=== PATIENT | female | born 1970 | race Caucasian/White ===

== ENCOUNTER → 2017-03-06 | Outpatient (CLI) | payer MEDICAID ==
[~2017-03-06] MED LIST: ALBUTEROL2 PUFFS/17 IN; AMITRIPTYLINE50 MG PO; AMOXICILLIN 50500 MG PO; AMOXICILLIN500 M2 PO; AMOXIL500 M1 PO; CHEWABLE ASPIRI81 MG PO; CIPRO 500MG TA500 MG PO; CLARITIN REDITA10 MG PO; DICLOFENAC 50MG50 MG PO; DICLOFENAC SODI75 M3 PO; ETODOLAC400 MG PO; FLECAINIDE ACET50 MG PO; FLEXERIL10 MG PO; GABAPENTIN100 M1 PO; HYDROCODONE BI473 ML PO; HYDROCODONE BIT1 T39 PO; HYDROCODONE BIT1 T45 PO; HYDROCODONE1 TABLET PO; HYDROXYZINE HCL25 MG PO; KEFLEX 500MG.500 MG PO; LEADER NATURAL1 SGL PO; LOPRESSOR HCT1 TAB PO; LORATADINE 10MG10 M1 PO; LORTAB 5/500 501 TAB PO; MEDROL 4MG. DOSE4 MG PO; MELATONIN3 MG PO; METHOCARBAMOL750 M1 PO; METOPROLOL TART50 MG PO; METOPROLOL25 MG PO; METOPROLOL50 MG OR; METOPROLOL50 MG PO; NORCO 325 MG-51 TAB PO; ONE DAILY WOMEN1 TAB PO; OXCARBAZEPINE600 M1 PO; Oxycodone5 MG PO; PANTOPRAZOLE SO40 MG PO; PERCOCET 5/3251 EACH PO; PHENERGAN 25MG.25 M1 PO; PHENERGAN 25MG.25 MG PR; PHENTERMINE37.5 MG PO; PREDNISONE 10MG10 MG PO; PRILOSEC OTC20 MG PO; SYMBICORT1 AER IH; TAMIFLU75 MG PO; TESSALON PERLE100 M1 PO; TESSALON PERLE200 MG PO; TRAMADOL 50MG T50 M1 PO; ULTRAM 50 MG TA50 MG PO; ULTRAM50 MG PO; VICODIN 5/500 T1 TAB PO; ZANAFLEX2 M1 PO
[2017-03-06 16:53] LABS: AMPHETAMINES/METAMPHETAMINES NEGATIVE ng/mL (<1000)
== END ==
LOC: LAB 15:13
PROVIDERS: Nurse Anesthetist, Certified Registered
DX: Z79.899 Other long term (current) drug therapy (principal)

== ENCOUNTER → 2017-08-12 | Emergency (ER) | payer MEDICAID ==
[~2017-08-12] VITALS: Ht 167.6 cm; Wt 126.1 kg
[~2017-08-12] MED LIST changes: +BACTRIM DS 8001 TAB PO; +DICLOFENAC SODI75 M2 PO; +MINOCYCLINE 10100 MG PO; +OMEPRAZOLE20 MG PO; +VITAMIN D50000 I1 PO; +ZITHROMAX Z PA250 MG PO; +[UNRECOGNIZED DRUG - OTHER] PO
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
[2017-08-12 21:00] VITALS: BP 106/75
--- OUTSIDE RECORDS SUMMARY | 2017-08-17 22:42 | External Medical Summary Rpt | CCD ---
Demographics Preferred Language Ethiopian Marital Status Unknown Church Affiliation Unknown Race Unknown Ethnic Group Unknown Author Author , RAE MCBRIDE Address Unknown Phone Immunization Unable to retrieve immunization data due to connection failure with Immunization Registry. Please try again later.
--- OUTSIDE RECORDS SUMMARY | 2017-08-17 22:42 | External Medical Summary Rpt | CCD ---
Demographics Preferred Language [place] Island[place] Marital Status Unknown Lutheran Affiliation Unknown Race Unknown Ethnic Group Unknown Author Author , RAE MCBRIDE Address Unknown Phone Immunization Unable to retrieve immunization data due to connection failure with Immunization Registry. Please try again later.
--- OUTSIDE RECORDS SUMMARY | 2017-08-17 22:43 | External Medical Summary Rpt ---
Author Author WILTONSAL Ontiveros, [employer] Address Unknown Phone Unavailable Results Opiates and Oxycodone(GC/MS),U Observa Value Referen Units Interpr Notes Date tion ce etation Range Hydroco 2510 Cutoff= ng/mL No No Oct 2 done 100 informa informa 2017 GC/MS, tion in tion in 10:07 Urine source source AM data data Oxycodo Negativ Cutoff= No No Test Oct 2 ne/Oxym e 100 informa informa include 2017 orph tion in tion in s 10:07 source source Oxycodo AM data data ne and Oxymorp honePer formed at: [facility] [id number] [place], [place] [id number] Directo r: Miguel Ángel Fontenot MD, Phone: [phone] Codeine Negativ Cutoff= No No No Oct 2 e 100 informa informa informa 2017 tion in tion in tion in 10:07 source source source AM data data data Morphin Negativ Cutoff= No No No Oct 2 e e 100 informa informa informa 2017 tion in tion in tion in 10:07 source source source AM data data data Hydromo Positiv . No Abnorma No Oct 2 rphone e informa l informa 2017 tion in tion in 10:07 source source AM data data Hydromo 331 Cutoff= ng/mL No No Oct 2 rphone 100 informa informa 2017 GC/MS, tion in tion in 10:07 Urine source source AM data data Hydroco Positiv . No Abnorma No Oct 2 done e informa l informa 2017 tion in tion in 10:07 source source AM data data Opiates Positiv . No Abnorma Opiate Oct 2 e informa l test 2017 tion in include 10:07 source s AM data Codeine , Morphin e, Hydromo rphone, Hydroco done. Drugs identified in Urine by Screen method Observa Value Referen Units Interpr Notes Date tion ce etation Range Positive urine drug screen samples are stored for 7 days. Contact the Lab if confirmation of positives is needed. Ampheta NEGATIV <1000 ng/mL No No Oct 2 mine E informa informa 2017 [Presen tion in tion in 10:07 ce] in source source AM Urine data data by Screen method Barbitura <200 ng/mL No No Oct 2 tenzin informati informati 2017 [Mass/vol on in on in 10:07 AM ume] in source source Urine by data data Screen method Benzodiaz 200 ng/mL ng/mL No No Oct 2 epines informati informati 2017 [Mass/vol on in on in 10:07 AM ume] in source source Serum or data data Plasma by Screen method Cocaine <300 ng/g No No Oct 2 [Mass/vol informati informati 2016 ume] in on in on in 10:07 AM Unspecifi source source ed data data specimen Methadone <300 ng/mL No No Oct 2 informati informati 2016 [Mass/vol on in on in 10:07 AM ume] in source source Unspecifi data data ed specimen Opiates <300 ng/mL High This is Oct 2 [Mass/vol an 2017 ume] in UNCONFIRM 10:07 AM Unspecifi ED ed result. specimen This result is for medicalpu rposes and/or treatment only. Phencycli <25 ng/mL No No Oct 2 dine informati informati 2016 [Mass/vol on in on in 10:07 AM ume] in source source Unspecifi data data ed specimen 11-Hydr NEGATIV <50 ng/mL No No Oct 2 oxy E informa informa 2017 delta-9 tion in tion in 10:07 source source AM tetrahy data data drocann abinol [Presen ce] in Unspeci fied specime n RETIC CT AUTOMATED Observa Value Referen Units Interpr Notes Date tion ce etation Range Reticul 2.5 0.5 - % High No Dec 03 ocytes/ 1.5 informa 2014 100 tion in 7:50 AM erythro source cytes data in Blood by Automat ed count CBC W DIFF AUTOMATED Observa Value Referen Units Interpr Notes Date tion ce etation Range Leukocy 17.9 4.5 - K/uL High No Dec 03 tenzin 11.5 informa 2014 [#/volu tion in 6:47 AM me] in source Blood data by Automat ed count Erythro 3.64 4.00 - M/uL Low No Dec 03 cytes 5.40 informa 2014 [#/volu tion in 6:47 AM me] in source Blood data by Automat ed count Hemoglo 10.9 12.0 - g/dL Low No Dec 03 bin 15.0 informa 2014 [Mass/v tion in 6:47 AM olume] source in data Blood Hematoc 32 35 - 49 % Low No Dec 03 rit informa 2014 [Volume tion in 6:47 AM source Fractio data n] of Blood by Automat ed count Erythro 88.7 80.0 - fL No No Dec 03 cyte 100 informa informa 2015 mean tion in tion in 6:47 AM corpusc source source ular data data volume [Entiti c volume] by Automat ed count Erythro 29.9 26.0 - pg No No Dec 03 cyte 32.0 informa informa 2014 mean tion in tion in 6:47 AM corpusc source source ular data data hemoglo bin [Entiti c mass] by Automat ed count Erythro 33.7 32.0 - g/dL No No Dec 03 cyte 36.0 informa informa 2014 mean tion in tion in 6:47 AM corpusc source source ular data data hemoglo bin concent ration [Mass/v olume] by Automat ed count Erythro 14.1 11.5 - % No No Dec 03 cyte 14.5 informa informa 2014 distrib tion in tion in 6:47 AM ution source source width data data [Ratio] by Automat ed count Platele 253 150 - K/uL No No Dec 03 ts 450 informa informa 2014 [#/volu tion in tion in 6:47 AM me] in source source Blood data data by Automat ed count Manual SEE No No No No Dec 03 Diff BELOW informa informa informa informa 2014 tion in tion in tion in tion in 6:47 AM source source source source data data data data SEGS 69 40 - 75 % No No Dec 03 informa informa 2014 tion in tion in 6:47 AM source source data data BANDS 6 0 - 5 % High No Dec 03 informa 2014 tion in 6:47 AM source data LYMPHS 8 16 - 46 % Low No Dec 03 inform2014 tion in 6:47 AM source data ATY 10 0 - 0 % High No Dec 03 LYMPHS informa 2014 tion in 6:47 AM source data MONOS 2 0 - 12 % No No Dec 03 informa informa 2015 tion in tion in 6:47 AM source source data data Eosinop 5 0 - 7 % No No Dec 03 hils/10 informa informa 2015 0 tion in tion in 6:47 AM leukocy source source tenzin in data data Blood by Automat ed count Basophi 0 0 - 2 % No No Dec 03 ls/100 informa informa 2015 leukocy tion in tion in 6:47 AM tenzin in source source Blood data data by Automat ed count Platele ADEQUAT No No No No Dec 03 t Est E informa informa informa informa 2015 tion in tion in tion in tion in 6:47 AM source source source source data data data data RBC NORMAL No No No No Dec 03 Morph informa informa informa informa 2015 tion in tion in tion in tion in 6:47 AM source source source source data data data data MAGNESIUM Observa Value Referen Units Interpr Notes Date tion ce etation Range Magnesi 1.5 1.8 - mg/dL Low No Dec 02 um 2.4 informa 2014 [Mass/v tion in 11:49 olume] source AM in data Serum or Plasma BASIC METABOLIC PANEL BMP Observa Value Referen Units Interpr Notes Date tion ce etation Range Sodium 134 136 - mmol/L Low No Dec 02 [Moles/ 145 informa 2014 volume] tion in 6:29 AM in source Serum data or Plasma Potassi 3.1 3.5 - mmol/L Low No Dec 02 um 5.1 informa 2014 [Moles/ tion in 6:29 AM volume] source in data Serum or Plasma Chlorid 98 98 - mmol/L No No Dec 02 e 107 informa informa 2014 [Moles/ tion in tion in 6:29 AM volume] source source in data data Serum or Plasma TOTAL 29 21 - 32 mmol/L No No Dec 02 CO2 informa informa 2014 tion in tion in 6:29 AM source source data data Anion 10 5 - 15 mmol/L No No Dec 02 gap in informa informa 2014 Serum tion in tion in 6:29 AM or source source Plasma data data Glucose 153 70 - mg/dl High No Dec 02 120 informa 2014 [Mass/v tion in 6:29 AM olume] source in data Serum or Plasma Urea 11 7 - 18 mg/dl No No Dec 02 nitroge informa informa 2014 n tion in tion in 6:29 AM [Mass/v source source olume] data data in Serum or Plasma Creatin 0.7 0.6 - mg/dl No No Dec 02 ine 1.3 informa informa 2014 [Mass/v tion in tion in 6:29 AM olume] source source in data data Serum or Plasma AGE 44 No yrs No No Dec 02 informa informa informa 2014 tion in tion in tion in 6:29 AM source source source data data data GFR >60 No ml/min No No Dec 02 informa informa informa 2014 tion in tion in tion in 6:29 AM source source source data data data Calcium 8.4 8.5 - mg/dl Low No Dec 02 10.1 informa 2014 [Mass/v tion in 6:29 AM olume] source in data Serum or Plasma BUN/CRE 16 6 - 25 ratio No No Dec 02 RATIO informa informa 2014 tion in tion in 6:29 AM source source data data OSMOLAL 271 272 - No Low No Dec 02 ITY 295 informa informa 2015 tion in tion in 6:29 AM source source data data \\BLDo\\G No No No No Dec 02 LOMERUL informa informa informa informa 2015 AR tion in tion in tion in tion in 6:29 AM FILTRAT source source source source ION data data data data RATE INTERPR ETATION \\BLDx\\ Normal No No No No Dec 02 Range: informa informa informa informa 2014 >60 tion in tion in tion in tion in 6:29 AM Ml/min/ source source source source 1.73 sq data data data data meters If No No No No Dec 02 patient informa informa informa informa 2014 is tion in tion in tion in tion in 6:29 AM source source source source data data data data Mariaelena n, multipl y GFR by 1.120. *GFR No No No No Dec 02 only informa informa informa informa 2014 applies tion in tion in tion in tion in 6:29 AM to source source source source adults data data data data over the age 18. CBC W DIFF AUTOMATED Observa Value Referen Units Interpr Notes Date tion ce etation Range Leukocy 14.1 4.5 - K/uL High No Dec 02 tenzin 11.5 informa 2014 [#/volu tion in 6:21 AM me] in source Blood data by Automat ed count Erythro 3.69 4.00 - M/uL Low No Dec 02 cytes 5.40 informa 2014 [#/volu tion in 6:21 AM me] in source Blood data by Automat ed count Hemoglo 10.9 12.0 - g/dL Low No Dec 02 bin 15.0 informa 2014 [Mass/v tion in 6:21 AM olume] source in data Blood Hematoc 33 35 - 49 % Low No Dec 02 rit informa 2014 [Volume tion in 6:21 AM source Fractio data n] of Blood by Automat ed count Erythro 89.4 80.0 - fL No No Dec 02 cyte 100 informa informa 2015 mean tion in tion in 6:21 AM corpusc source source ular data data volume [Entiti c volume] by Automat ed count Erythro 29.5 26.0 - pg No No Dec 02 cyte 32.0 informa informa 2015 mean tion in tion in 6:21 AM corpusc source source ular data data hemoglo bin [Entiti c mass] by Automat ed count Erythro 33.0 32.0 - g/dL No No Dec 02 cyte 36.0 informa informa 2014 mean tion in tion in 6:21 AM corpusc source source ular data data hemoglo bin concent ration [Mass/v olume] by Automat ed count Erythro 14.5 11.5 - % No No Dec 02 cyte 14.5 informa informa 2015 distrib tion in tion in 6:21 AM ution source source width data data [Ratio] by Automat ed count Platele 255 150 - K/uL No No Dec 02 ts 450 informa informa 2015 [#/volu tion in tion in 6:21 AM me] in source source Blood data data by Automat ed count Lymphoc 12.4 18.0 - % Low No Dec 02 ytes/10 42.0 informa 2015 0 tion in 6:21 AM leukocy source tenzin in data Blood by Automat ed count Monocyt 10.2 2.0 - % No No Dec 02 es/100 11.0 informa informa 2015 leukocy tion in tion in 6:21 AM tenzin in source source Blood data data by Automat ed count Neutrop 71.5 50.0 - % High No Dec 02 hils.ba 70.0 informa 2015 nd tion in 6:21 AM form/10 source 0 data leukocy tenzin in Blood by Manual count Eosinop 5.60 1.00 - % High No Dec 02 hils/10 3.00 informa 2015 0 tion in 6:21 AM leukocy source tenzin in data Blood by Automat ed count Basophi 0.30 0.00 - % No No Dec 02 ls/100 2.00 informa informa 2015 leukocy tion in tion in 6:21 AM tenzin in source source Blood data data by Automat ed count Lymphoc 1.75 0.60 - K/uL No No Dec 02 ytes/10 3.40 informa informa 2015 0 tion in tion in 6:21 AM leukocy source source tenzin in data data Blood by Automat ed count Monocyt 1.44 0.00 - K/uL High No Dec 02 es/100 0.90 informa 2015 leukocy tion in 6:21 AM tenzin in source Blood data by Automat ed count Neutrop 10.09 2.00 - K/uL High No Dec 02 hils.ba 6.90 informa 2015 nd tion in 6:21 AM form/10 source 0 data leukocy tenzin in Blood by Manual count Eosinop 0.79 0.00 - K/uL High No Dec 02 hils/10 0.70 informa 2015 0 tion in 6:21 AM leukocy source tenzin in data Blood by Automat ed count Basophi 0.04 0.00 - K/uL No No Dec 02 ls/100 0.20 informa informa 2015 leukocy tion in tion in 6:21 AM tenzin in source source Blood data data by Automat ed count Manual NOT No No No No Dec 02 Diff INDICAT informa informa informa informa 2014 ED tion in tion in tion in tion in 6:21 AM source source source source data data data data KNEE LEFT 2 VIEWS Observa Value Referen Units Interpr Notes Date tion ce etation Range KNEE No No No No Dec 01 LEFT 2 informa informa informa informa 2014 VIEWS tion in tion in tion in tion in 9:47 AM [place] [facility] source source source source COUNTY data data data data [facility]\\.br\\ [address]\\.br \\ [place] [address]\\. br\\\\.br \\ RADIOLO GY REPORT\\ .br\\ Name: BETSY TROY\\.br\\ Patient #: [id number] Stay Type: I/P\\.br \\ Age: 44 Room: 236\\.br \\ : 969 Sex: F\\.br\\ Orderin g Phys: BROOKS MATIAS MR#: [id number]\\. br\\ Family Phys: ANDERS MAHARAJ Pt Phone: \\. br\\ Admitti ng Phys: BROOKS MATIAS\\.br\\ Unsig trevin Transcr iptions represe nt a prelimi nary report and do\\.br\\ not reflect a medical or legal documen t.\\.b r\\\\.br\\ \\.br\\ %'& %#"# #$$#"!\\ .br\\ -\\.br\\& ! ! ")! )&)(\\.b r\\\\.br\\ HISTORY /INDICA TION: Post op total knee arthrop lasty.\\ .br\\\\.b r\\ Two views obtaine d showing the new arthrop lasty. Orthope dic element s are well positio trevin. No\\.br\\ gross complic ations. \\.br\\\\. br\\\\.br \\\\.br\\\\ .br\\ Electro nically reviewe d and signed by:\\.br \\ KIN ROBERTS MD\\.br\\ RADIOLO GIST/ 17:58\\. br\\\\.br \\ Dictati on Date/Ti me: 12/01/14 10:11 Dictate d By: KIN ROBERTS MD RADIOLO GIST\\.b r\\ Transcr . Date/Ti me: 12/01/15 / 12:04 Transcr . Init.: [facility]\\.br \\\\.br\\ Copy for: Kenny [facility] ([facility])\\.br \\ Copy for: BROOKS Mitchell M.D. via fax\\.br \\\\.br\\ VIT B12 FOLATE Observa Value Referen Units Interpr Notes Date tion ce etation Range _VIT No No No Dec 04 B12& informa informa informa informa 2014 FOLATE_ tion in tion in tion in tion in 9:53 AM source source source source data data data data Vitamin No No No Dec 04 B12 informa informa informa informa 2014 and tion in tion in tion in tion in 9:53 AM Folate source source source source data data data data Reporte No No No No Dec 04 d: informa informa informa informa 2014 tion in tion in tion in tion in 9:53 AM 015 source source source source 09:21 data data data data Status= F ------- No No No Dec 04 ------- informa informa informa informa 2014 ------- tion in tion in tion in tion in 9:53 AM ------- source source source source ------- data data data data ------- ------- ------- ------- ------- ------- --- TEST No No No Dec 04 informa informa informa informa 2014 tion in tion in tion in tion in 9:53 AM source source source source RESULT data data data data FLAG RANGE UNITS SC ------- No No No Dec 04 ------- informa informa informa informa 2014 ------- tion in tion in tion in tion in 9:53 AM ------- source source source source ------- data data data data ------- ------- ------- ------- ------- ------- --- Vitamin No No No No Dec 04 B12 informa informa informa informa 2015 tion in tion in tion in tion in 9:53 AM source source source source 498 data data data data 211-946 pg/mL CB 5.0922. rfl.COR RCTD .LCTR Folate No No No No Dec 04 (Folic informa informa informa informa 2015 Acid), tion in tion in tion in tion in 9:53 AM source source source source >19.9 data data data data >3.0 ng/mL CB 5.0922. rfl.COR RCTD .LCTR Serum No No No No Dec 04 informa informa informa informa 2014 tion in tion in tion in tion in 9:53 AM source source source source data data data data A serum No No No No Dec 04 folate informa informa informa informa 2014 tion in tion in tion in tion in 9:53 AM concent source source source source ration data data data data of less than 3.1 ng/mL is conside No No No No Dec 04 red to informa informa informa informa 2015 represe tion in tion in tion in tion in 9:53 AM nt source source source source clinica data data data data l deficie ncy. No No No No No Dec 04 informa informa informa informa informa 2015 tion in tion in tion in tion in tion in 9:53 AM source source source source source data data data data data Test No No No No Dec 04 perform informa informa informa informa 2014 ed at: tion in tion in tion in tion in 9:53 AM [facility] source source source source Babita data data data data 6370 No No No No Dec 04 Foss informa informa informa informa [address] tion in tion in tion in tion in 9:53 AM source source source source data data data data Babita, No No No No Dec 04 OH informa informa informa informa 2015 72224-1 tion in tion in tion in tion in 9:53 AM 296 source source source source data data data data 614 No No No No Dec 04 889-106 informa informa informa informa 2015 1 tion in tion in tion in tion in 9:53 AM source source source source data data data data Modina No No No No Dec 04 R. informa informa informa informa 2015 Thrashe tion in tion in tion in tion in 9:53 AM MD xenia source source source source data data data data No No No No Dec 04 5.0953. informa informa informa informa 2015 XMT.SEN tion in tion in tion in tion in 9:53 AM T REF source source source source data data data data No No No No Dec 04 5.0953. informa informa informa informa 2014 XMT.SEN tion in tion in tion in tion in 9:53 AM T REF source source source source data data data data No No No No Dec 04 5.0953. informa informa informa informa 2014 LMM.to tion in tion in tion in tion in 9:53 AM GUY source source source source JA via data data data data fax No No No No Dec 04 5.0953. informa informa informa informa 2014 LMM.to tion in tion in tion in tion in 9:53 AM MELITON source source source source GLE via data data data data link IRON IBC n Percent SATURATION Observa Value Referen Units Interpr Notes Date tion ce etation Range Iron 303 250 - ug/dL No No Dec 03 saturat 450 informa informa 2015 ion tion in tion in 8:05 AM [Mass] source source in data data Serum or Plasma Iron 94 50 - ug/dL No No Dec 03 [Mass/v 175 informa informa 2015 olume] tion in tion in 8:05 AM in source source Serum data data or Plasma % 31 12 - 57 No No No Dec 03 SATURAT informa informa informa 2015 ION tion in tion in tion in 8:05 AM source source source data data data FERRITIN Observa Value Referen Units Interpr Notes Date tion ce etation Range Ferriti 128 8 - 388 ng/mL No No Dec 03 n informa informa 2014 [Mass/v tion in tion in 8:05 AM olume] source source in data data Serum or Plasma BB TYPE AND SCREEN Observa Value Referen Units Interpr Notes Date tion ce etation Range TYPE No No No No Dec 01 AND informa informa informa informa 2014 SCREEN tion in tion in tion in tion in 7:34 AM source source source source data data data data { No No No No Dec 01 ABO informa informa informa informa 2014 tion in tion in tion in tion in 7:34 AM source source source source A data data data data (A, B, AB or O ) { No No No No Dec 01 RH informa informa informa informa 2014 tion in tion in tion in tion in 7:34 AM source source source source data data data data POSITIV E (POS OR NEG ) { No No No No Dec 01 informa informa informa informa 2014 Antibod tion in tion in tion in tion in 7:34 AM y source source source source Screen data data data data NEGATIV E (POS OR NEG ) URINALYSIS COMPLETE AUTOMATED Observa Value Referen Units Interpr Notes Date tion ce etation Range Color YELLOW NL: No No No Nov 19 of Negativ informa informa informa 2014 Urine e tion in tion in tion in 2:07 PM source source source data data data Appeara CLEAR NL: No No No Nov 19 nce of Negativ informa informa informa 2014 Urine e tion in tion in tion in 2:07 PM source source source data data data Glucose NEG NL: No No No Nov 19 Negativ informa informa informa 2014 [Mass/v e tion in tion in tion in 2:07 PM olume] source source source in data data data Urine by Test strip Bilirub NEG NL: No No No Nov 19 in Negativ informa informa informa 2014 [Presen e tion in tion in tion in 2:07 PM ce] in source source source Urine data data data by Test strip Ketones NEG NL: No No No Nov 19 Negativ informa informa informa 2014 [Presen e tion in tion in tion in 2:07 PM ce] in source source source Serum data data data or Plasma Specifi 1.020 NL: No No No Nov 19 c 1.00 >= informa informa informa 2015 gravity 1.030 tion in tion in tion in 2:07 PM of source source source Urine data data data Hemoglo NEG NL: No No No Nov 19 bin Negativ informa informa informa 2014 [Presen e tion in tion in tion in 2:07 PM ce] in source source source Urine data data data by Test strip pH of 6.0 NL: No No No Nov 19 Urine informa informa informa 2014 by Test tion in tion in tion in 2:07 PM strip source source source data data data Protein NEG NL: No No No Nov 19 Negativ informa informa informa 2014 [Presen e tion in tion in tion in 2:07 PM ce] in source source source Urine data data data by Test strip Urobili 0.2 NL: 0.2 No No No Nov 19 nogen - 1.0 informa informa informa 2014 [Mass/v tion in tion in tion in 2:07 PM olume] source source source in data data data Urine by Test strip Nitrite NEG NL: No No No Nov 19 Negativ informa informa informa 2014 [Presen e tion in tion in tion in 2:07 PM ce] in source source source Urine data data data by Test strip Leukocy NEG NL: No No No Nov 19 tenzin Negativ informa informa informa 2014 [#/volu e tion in tion in tion in 2:07 PM me] in source source source Blood data data data by Automat ed count { No No No No Nov 19 MICROSC informa informa informa informa 2014 OPIC tion in tion in tion in tion in 2:07 PM source source source source See data data data data Below Wbc NEGATIV NL: No No No Nov 19 E NEGATIV informa informa informa 2014 E tion in tion in tion in 2:07 PM source source source data data data Rbc NEGATIV NL: No No No Nov 19 E NEGATIV informa informa informa 2014 E tion in tion in tion in 2:07 PM source source source data data data Epi NEGATIV NL: No No No Nov 19 Cells E NEGATIV informa informa informa 2014 E tion in tion in tion in 2:07 PM source source source data data data Bacteri NEGATIV NL: No No No Nov 19 a E NEGATIV informa informa informa 2014 E tion in tion in tion in 2:07 PM source source source data data data Mucous NEGATIV NL: No No No Nov 19 E NEGATIV informa informa informa 2014 E tion in tion in tion in 2:07 PM source source source data data data Yeast NEGATIV NL: No No No Nov 19 E NEGATIV informa informa informa 2014 E tion in tion in tion in 2:07 PM source source source data data data Casts NEGATIV NL: No No No Nov 19 E NEGATIV informa informa informa 2014 E tion in tion in tion in 2:07 PM source source source data data data Crystal NEGATIV NL: No No No Nov 19 s E NEGATIV informa informa informa 2014 E tion in tion in tion in 2:07 PM source source source data data data METH OF C CATCH No No No No Nov 19 TERI informa informa informa informa 2014 tion in tion in tion in tion in 2:07 PM source source source source data data data data CULTURE NOT No No No No Nov 19 SETUP INDIC informa informa informa informa 2014 tion in tion in tion in tion in 2:07 PM source source source source data data data data CBC W DIFF AUTOMATED Observa Value Referen Units Interpr Notes Date tion ce etation Range Leukocy 13.5 4.5 - K/uL High No Jun 18 tenzin 11.5 informa 2013 [#/volu tion in 5:39 AM me] in source Blood data by Automat ed count Erythro 3.02 4.00 - M/uL Low No Jun 18 cytes 5.40 informa 2013 [#/volu tion in 5:39 AM me] in source Blood data by Automat ed count Hemoglo 9.1 12.0 - g/dL Low Jun 18 bin 15.0 informa 2013 [Mass/v tion in 5:39 AM olume] source in data Blood Hematoc 28 35 - 49 % Low No Jun 18 rit informa 2014 [Volume tion in 5:39 AM source Fractio data n] of Blood by Automat ed count Erythro 92.4 80.0 - fL No No Jun 18 cyte 100 informa informa 2014 mean tion in tion in 5:39 AM corpusc source source ular data data volume [Entiti c volume] by Automat ed count Erythro 30.1 26.0 - pg No No Jun 18 cyte 32.0 informa informa 2014 mean tion in tion in 5:39 AM corpusc source source ular data data hemoglo bin [Entiti c mass] by Automat ed count Erythro 32.6 32.0 - g/dL No No Jun 18 cyte 36.0 informa informa 2014 mean tion in tion in 5:39 AM corpusc source source ular data data hemoglo bin concent ration [Mass/v olume] by Automat ed count Erythro 12.7 11.5 - % No No Jun 18 cyte 14.5 informa informa 2014 distrib tion in tion in 5:39 AM ution source source width data data [Ratio] by Automat ed count Platele 213 150 - K/uL No No Jun 18 ts 450 informa informa 2013 [#/volu tion in tion in 5:39 AM me] in source source Blood data data by Automat ed count Lymphoc 13.2 18.0 - % Low No Jun 18 ytes/10 42.0 informa 2014 0 tion in 5:39 AM leukocy source tenzin in data Blood by Automat ed count Monocyt 13.9 2.0 - % High No Jun 18 es/100 11.0 informa 2013 leukocy tion in 5:39 AM tenzin in source Blood data by Automat ed count Neutrop 69.6 50.0 - % No No Jun 18 hils.ba 70.0 informa informa 2014 nd tion in tion in 5:39 AM form/10 source source 0 data data leukocy tenzin in Blood by Manual count Eosinop 3.00 1.00 - % No No Jun 18 hils/10 3.00 informa informa 2014 0 tion in tion in 5:39 AM leukocy source source tenzin in data data Blood by Automat ed count Basophi 0.30 0.00 - % No No Jun 18 ls/100 2.00 informa informa 2014 leukocy tion in tion in 5:39 AM tenzin in source source Blood data data by Automat ed count Lymphoc 1.79 0.60 - K/uL No No Jun 18 ytes/10 3.40 informa informa 2014 0 tion in tion in 5:39 AM leukocy source source tenzin in data data Blood by Automat ed count Monocyt 1.88 0.00 - K/uL High No Jun 18 es/100 0.90 informa 2014 leukocy tion in 5:39 AM tenzin in source Blood data by Automat ed count Neutrop 9.39 2.00 - K/uL High No Jun 18 hils.ba 6.90 informa 2014 nd tion in 5:39 AM form/10 source 0 data leukocy tenzin in Blood by Manual count Eosinop 0.41 0.00 - K/uL No No Jun 18 hils/10 0.70 informa informa 2014 0 tion in tion in 5:39 AM leukocy source source tenzin in data data Blood by Automat ed count Basophi 0.04 0.00 - K/uL No No Jun 18 ls/100 0.20 informa informa 2014 leukocy tion in tion in 5:39 AM tenzin in source source Blood data data by Automat ed count Manual NOT No No No No Jun 18 Diff INDICAT informa informa informa informa 2014 ED tion in tion in tion in tion in 5:39 AM source source source source data data data data URINALYSIS with CULTURE IF INDICATED Observa Value Referen Units Interpr Notes Date tion ce etation Range Color LT. NL: No No No Jun 17 of YELL Negativ informa informa informa 2014 Urine e tion in tion in tion in 11:05 source source source PM data data data Appeara CLEAR NL: No No No Jun 17 nce of Negativ informa informa informa 2014 Urine e tion in tion in tion in 11:05 source source source PM data data data Glucose NEG NL: No No No Jun 17 Negativ informa informa informa 2014 [Mass/v e tion in tion in tion in 11:05 olume] source source source PM in data data data Urine by Test strip Bilirub NEG NL: No No No Jun 17 in Negativ informa informa informa 2013 [Presen e tion in tion in tion in 11:05 ce] in source source source PM Urine data data data by Test strip Ketones NEG NL: No No No Jun 17 Negativ informa informa informa 2013 [Presen e tion in tion in tion in 11:05 ce] in source source source PM Serum data data data or Plasma Specifi 1.010 NL: No No No Jun 17 c 1.00 >= informa informa informa 2014 gravity 1.030 tion in tion in tion in 11:05 of source source source PM Urine data data data Hemoglo 2+ NL: No Abnorma No Jun 17 bin Negativ informa l informa 2013 [Presen e tion in tion in 11:05 ce] in source source PM Urine data data by Test strip pH of 6.5 NL: No No No Jun 17 Urine informa informa informa 2014 by Test tion in tion in tion in 11:05 strip source source source PM data data data Protein NEG NL: No No No Jun 17 Negativ informa informa informa 2013 [Presen e tion in tion in tion in 11:05 ce] in source source source PM Urine data data data by Test strip Urobili 1.0 NL: 0.2 No No No Jun 17 nogen - 1.0 informa informa informa 2013 [Mass/v tion in tion in tion in 11:05 olume] source source source PM in data data data Urine by Test strip Nitrite NEG NL: No No No Jun 17 Negativ informa informa informa 2013 [Presen e tion in tion in tion in 11:05 ce] in source source source PM Urine data data data by Test strip Leukocy 1+ NL: No Abnorma No Jun 17 tenzin Negativ informa l informa 2013 [#/volu e tion in tion in 11:05 me] in source source PM Blood data data by Automat ed count { No No No No Jun 17 MICROSC informa informa informa informa 2013 OPIC tion in tion in tion in tion in 11:05 source source source source PM See data data data data Below Leukocy 3 - 5 NL: No Abnorma No Jun 17 tenzin NEGATIV informa l informa 2013 [#/volu E tion in tion in 11:05 me] in source source PM Blood data data by Automat ed count Erythro 10 - 20 NL: No Abnorma No Jun 17 cytes NEGATIV informa l informa 2013 [#/volu E tion in tion in 11:05 me] in source source PM Blood data data by Automat ed count Epithel 0 - 3 NL: No No No Jun 17 ial NEGATIV informa informa informa 2014 cells E tion in tion in tion in 11:05 [#/area source source source PM ] in data data data Urine sedimen t by Microsc opy high power field Bacteri NEGATIV NL: No No No Jun 17 a E NEGATIV informa informa informa 2013 E tion in tion in tion in 11:05 source source source PM data data data Mucous NEGATIV NL: No No No Jun 17 E NEGATIV informa informa informa 2013 E tion in tion in tion in 11:05 source source source PM data data data Yeast NEGATIV NL: No No No Jun 17 E NEGATIV informa informa informa 2013 E tion in tion in tion in 11:05 source source source PM data data data Casts NEGATIV NL: No No No Jun 17 E NEGATIV informa informa informa 2013 E tion in tion in tion in 11:05 source source source PM data data data Crystal NEGATIV NL: No No No Jun 17 s E NEGATIV informa informa informa 2013 E tion in tion in tion in 11:05 source source source PM data data data METH OF C CATCH No No No No Jun 17 TERI informa informa informa informa 2014 tion in tion in tion in tion in 11:05 source source source source PM data data data data CULTURE C&S No No Abnorma No Jun 17 SETUP ORDER informa informa l informa 2014 tion in tion in tion in 11:05 source source source PM data data data KNEE RIGHT 4 OR MORE VIEWS Observa Value Referen Units Interpr Notes Date tion ce etation Range KNEE No No No No Jun 17 RIGHT 4 informa informa informa informa 2014 OR tion in tion in tion in tion in 2:40 PM MORE source source source source VIEWS data data data data [facility] L\\.br\\ [address]\\.br \\ [place] [address]\\. br\\\\.br \\ RADIOLO GY REPORT\\ .br\\ Name: BETSY TROY\\.br\\ Patient #: [id number] Stay Type: I/P\\.br \\ Age: 44 Room: 236\\.br \\ : 969 Sex: F\\.br\\ Orderin g Phys: HYLANDE R S MR#: [id number]\\. br\\ Family Phys: BROOKS MATIAS Pt Phone: 19\\. br\\ Admitti ng Phys: GUY JA\\.br\\ Unsig trevin Transcr iptions represe nt a prelimi nary report and do\\.br\\ not reflect a medical or legal documen t.\\.b r\\\\.br\\ \\.br\\ %0' ) (#' '&'&%$# "!\\.br\\ ""23 # ! 3 21\\.br\\ \\.br\\ CLINICA L HISTORY : Right knee pain status post fall. Patient is status post total right knee\\.b r\\ arthrop lasty yesterd ay.\\.br \\\\.br\\ COMPARI SON: None.\\. br\\\\.br \\ FINDING S: Four views obtaine d. The patient is status post total right knee arthrop lasty. The\\.br \\ hardwar e is intact and appropr iately positio trevin. There is no acute fractur e or disloca tion. There is\\.br\\ soft tissue swellin g along the anterol ateral aspects of the knee with mild subcuta neous emphyse ma,\\.br \\ seconda ry to the recent surgery .\\.br\\\\ .br\\ IMPRESS ION:\\.b r\\ Status post total right knee arthrop lasty without acute complic ation.\\ .br\\ No acute osseous abnorma lity of the right knee.\\. br\\\\.br \\\\.br\\\\ .br\\ Electro nically reviewe d and signed by:\\.br \\ LYNN TODD MD\\.br\\ RADIOLO GIST/ 13:19\\. br\\\\.br \\ Dictati on Date/Ti me: 06/17/14 15:32 Dictate d By: LYNN TODD MD RADIOLO GIST\\.b r\\ Transcr . Date/Ti me: 06/17/14 / 16:30 Transcr . Init.: amh\\.br \\\\.br\\ Copy for: ERIBERTO Wilson\\.br\\ Copy for: BROOKS Mitchell M.D. via fax\\.br \\ Copy for: 0[facility] T[facility] E[facility]\\.br \\ DISCHAR GED\\.br \\\\.br\\ BASIC METABOLIC PANEL BMP Observa Value Referen Units Interpr Notes Date tion ce etation Range Sodium 133 136 - mmol/L Low No Jun 17 [Moles/ 145 informa 2013 volume] tion in 6:19 AM in source Serum data or Plasma Potassi 3.8 3.5 - mmol/L No Jun 17 um 5.1 informa informa 2013 [Moles/ tion in tion in 6:19 AM volume] source source in data data Serum or Plasma Chlorid 101 98 - mmol/L No Jun 17 e 107 informa informa 2013 [Moles/ tion in tion in 6:19 AM volume] source source in data data Serum or Plasma TOTAL 25 21 - 32 mmol/L No No Jun 17 CO2 informa informa 2013 tion in tion in 6:19 AM source source data data ANION 11 5 - 15 mmol/L No Jun 17 GAP informa informa 2013 tion in tion in 6:19 AM source source data data Glucose 194 70 - mg/dl High No Jun 17 120 informa 2013 [Mass/v tion in 6:19 AM olume] source in data Serum or Plasma Urea 11 7 - 18 mg/dl No Jun 17 nitroge informa informa 2013 n tion in tion in 6:19 AM [Mass/v source source olume] data data in Serum or Plasma Creatin 0.7 0.6 - mg/dl No No Jun 17 ine 1.3 informa informa 2013 [Mass/v tion in tion in 6:19 AM olume] source source in data data Serum or Plasma AGE 44 No yrs No No Jun 17 informa informa informa 2014 tion in tion in tion in 6:19 AM source source source data data data GFR >60 No ml/min No No Jun 17 informa informa informa 2014 tion in tion in tion in 6:19 AM source source source data data data Calcium 8.2 8.5 - mg/dl Low No Jun 17 10.1 informa 2013 [Mass/v tion in 6:19 AM olume] source in data Serum or Plasma BUN/CRE 16 6 - 25 ratio No No Jun 17 RATIO informa informa 2014 tion in tion in 6:19 AM source source data data OSMOLAL 271 272 - No Low No Jun 17 ITY 295 informa informa 2013 tion in tion in 6:19 AM source source data data \\BLDo\\G No No No No Jun 17 LOMERUL informa informa informa informa 2014 AR tion in tion in tion in tion in 6:19 AM FILTRAT source source source source ION data data data data RATE INTERPR ETATION \\BLDx\\ Normal No No No No Jun 17 Range: informa informa informa informa 2014 >60 tion in tion in tion in tion in 6:19 AM Ml/min/ source source source source 1.73 sq data data data data meters If No No No No Jun 17 patient informa informa informa informa 2013 is tion in tion in tion in tion in 6:19 AM source source source source data data data data Mariaelena n, multipl y GFR by 1.120. *GFR No No No No Jun 17 only informa informa informa informa 2013 applies tion in tion in tion in tion in 6:19 AM to source source source source adults data data data data over the age 18. CBC W DIFF AUTOMATED Observa Value Referen Units Interpr Notes Date tion ce etation Range Leukocy 13.6 4.5 - K/uL High No Jun 17 tenzin 11.5 inform2013 [#/volu tion in 6:18 AM me] in source Blood data by Automat ed count Erythro 3.20 4.00 - M/uL Low No Jun 17 cytes 5.40 2013 [#/volu tion in 6:18 AM me] in source Blood data by Automat ed count Hemoglo 10.0 12.0 - g/dL Low No Jun 17 bin 15.0 informa 2013 [Mass/v tion in 6:18 AM olume] source in data Blood Hematoc 30 35 - 49 % Low No Jun 17 rit informa 2013 [Volume tion in 6:18 AM source Fractio data n] of Blood by Automat ed count Erythro 92.2 80.0 - fL No No Jun 17 cyte 100 informa informa 2014 mean tion in tion in 6:18 AM corpusc source source ular data data volume [Entiti c volume] by Automat ed count Erythro 30.6 26.0 - pg No No Jun 17 cyte 32.0 informa informa 2014 mean tion in tion in 6:18 AM corpusc source source ular data data hemoglo bin [Entiti c mass] by Automat ed count Erythro 33.2 32.0 - g/dL No No Jun 17 cyte 36.0 informa informa 2014 mean tion in tion in 6:18 AM corpusc source source ular data data hemoglo bin concent ration [Mass/v olume] by Automat ed count Erythro 12.9 11.5 - % No No Jun 17 cyte 14.5 informa informa 2013 distrib tion in tion in 6:18 AM ution source source width data data [Ratio] by Automat ed count Platele 239 150 - K/uL No No Jun 17 ts 450 informa informa 2013 [#/volu tion in tion in 6:18 AM me] in source source Blood data data by Automat ed count Lymphoc 13.0 18.0 - % Low No Jun 17 ytes/10 42.0 informa 2013 0 tion in 6:18 AM leukocy source tenzin in data Blood by Automat ed count Monocyt 8.7 2.0 - % No No Jun 17 es/100 11.0 informa informa 2014 leukocy tion in tion in 6:18 AM tenzin in source source Blood data data by Automat ed count Neutrop 75.4 50.0 - % High No Jun 17 hils.ba 70.0 informa 2013 nd tion in 6:18 AM form/10 source 0 data leukocy tenzin in Blood by Manual count Eosinop 2.70 1.00 - % No No Jun 17 hils/10 3.00 informa informa 2014 0 tion in tion in 6:18 AM leukocy source source tenzin in data data Blood by Automat ed count Basophi 0.20 0.00 - % No No Jun 17 ls/100 2.00 informa informa 2014 leukocy tion in tion in 6:18 AM tenzin in source source Blood data data by Automat ed count Lymphoc 1.76 0.60 - K/uL No No Jun 17 ytes/10 3.40 informa informa 2014 0 tion in tion in 6:18 AM leukocy source source tenzin in data data Blood by Automat ed count Monocyt 1.18 0.00 - K/uL High No Jun 17 es/100 0.90 informa 2014 leukocy tion in 6:18 AM tenzin in source Blood data by Automat ed count Neutrop 10.21 2.00 - K/uL High No Jun 17 hils.ba 6.90 informa 2014 nd tion in 6:18 AM form/10 source 0 data leukocy tenzin in Blood by Manual count Eosinop 0.37 0.00 - K/uL No No Jun 17 hils/10 0.70 informa informa 2014 0 tion in tion in 6:18 AM leukocy source source tenzin in data data Blood by Automat ed count Basophi 0.03 0.00 - K/uL No No Jun 17 ls/100 0.20 informa informa 2014 leukocy tion in tion in 6:18 AM tenzin in source source Blood data data by Automat ed count Manual NOT No No No No Jun 17 Diff INDICAT informa informa informa informa 2014 ED tion in tion in tion in tion in 6:18 AM source source source source data data data data BB TYPE AND SCREEN Observa Value Referen Units Interpr Notes Date tion ce etation Range TYPE No No No No Jun 16 AND informa informa informa informa 2014 SCREEN tion in tion in tion in tion in 3:01 PM source source source source data data data data { No No No No Jun 16 ABO informa informa informa informa 2014 tion in tion in tion in tion in 3:01 PM source source source source A data data data data (A, B, AB or O ) { No No No No Jun 16 RH informa informa informa informa 2014 tion in tion in tion in tion in 3:01 PM source source source source data data data data POSITIV E (POS OR NEG ) { No No No No Jun 16 informa informa informa informa 2014 Antibod tion in tion in tion in tion in 3:01 PM y source source source source Screen data data data data NEGATIV E (POS OR NEG )
--- OUTSIDE RECORDS SUMMARY | 2017-08-17 22:43 | External Medical Summary Rpt ---
Author Author WILTONSAL Ontiveros, [employer] Address Unknown Phone Unavailable [...] data ne and [employer] honePer formed at: [facility] [id number] [place], [place] [id number]Lab Directo r: Miguel Ángel Fontenot MD, Phone: [phone] Codeine Negativ Cutoff= No No No Oct [...] in tion in tion in 9:47 AM [place] source source source source [facility] data data data data [facility].br\\ [address]\\.br \\ [place] [address]\\. br\\\\.br \\ RADIOLO GY REPORT\\ .br\\ Name: BETSY TROY\\.br\\ Patient #: [id number] Stay Type: I/P\\.br \\ Age: 44 Room: 236\\.br \\ : 969 Sex: F\\.br\\ Orderin g Phys: BROOKS MATIAS MR#: [id number]\\. br\\ Family Phys: ANDERS MAHARAJ Pt Phone: [...] \\\\.br\\ Copy for: Kenny [facility] ([facility])\\.br \\ Copy for: BROOKS Mitchell M.D. [...] 04 [place] informa informa informa informa 2015 [id number] tion in tion in tion in tion [...] [facility]\\.br\\ [address]\\.br \\ [place] [address]\\. br\\\\.br \\ RADIOLO GY REPORT\\ .br\\ Name: BETSY TROY\\.br\\ Patient #: [id number] Stay Type: I/P\\.br \\ Age: 44 Room: 236\\.br \\ : 969 Sex: F\\.br\\ Orderin g Phys: HYLANDE R S MR#: [id number]\\. br\\ Family Phys: BROOKS MATIAS Pt Phone: 57\\. br\\ Admitti ng Phys: GUY JA\\.br\\ Unsig [...]
== END ==
LOC: UTC 19:46
DX: J02.9 Acute pharyngitis, unspecified (principal); J45.909 Unspecified asthma, uncomplicated; I10 Essential (primary) hypertension; F17.290 Nicotine dependence, other tobacco product, uncomplicated

== ENCOUNTER 2017-08-31 13:41 | Emergency (ER) | payer MEDICAID ==
[~2017-08-31] VITALS: Ht 167.6 cm; Wt 131.7 kg
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
[2017-08-31 14:26] VITALS: BP 144/90
--- OUTSIDE RECORDS SUMMARY | 2017-08-31 18:24 | External Medical Summary Rpt | CCD ---
Demographics Preferred Language [place] Marital Status Unknown Zoroastrianism Affiliation Unknown Race Unknown Ethnic Group Unknown Author Author [employer] Address Unknown Phone Immunization No patient found.
--- OUTSIDE RECORDS SUMMARY | 2017-08-31 18:24 | External Medical Summary Rpt | CCD ---
Demographics Preferred Language Slovak Marital Status Unknown Uatsdin Affiliation Unknown Race Unknown Ethnic Group Unknown Author Author [employer] Address Unknown Phone Immunization No patient found.
--- OUTSIDE RECORDS SUMMARY | 2017-08-31 18:25 | External Medical Summary Rpt ---
Author Author RAE Ontiveros, [employer] [place] Organization [employer] Address Unknown Phone Unavailable Results Streptococcus pyogenes Ag [Presence] in Unspecified specimen Observa Value Referen Units Interpr Notes Date tion ce etation Range Strepto NOT NOTDETE No No LOT # Oct 8 coccus DETECTE CTED informa informa NA EXP 2017 pyogene D tion in tion in DATE 8:23 PM s Ag source source NADONE [Presen data data IN ce] in CLINICA Unspeci L LAB fied specime n Opiates and Oxycodone(GC/MS),U Observa Value Referen Units [...] data ne and [employer] honePer formed at: [facility] [address] [id number] [place], [place] [id number]Lab Directo r: Miguel Ángel Fontenot MD, Phone: [phone] Codeine Negativ Cutoff= No No No Oct [...] data Opiates Positiv . No Abnorma Opiate Aug 2 e informa l test 2017 tion [...] needed. Ampheta NEGATIV <1000 ng/mL No No Aug 06 mine E informa informa 2017 [Presen tion in tion in 10:07 ce] in source source AM Urine data data by Screen method Barbitura <200 ng/mL No No Aug 2 tenzin informati informati 2016 [Mass/vol on in on in 10:07 AM ume] in source source Urine by data data Screen method Benzodiaz 200 ng/mL ng/mL No No Aug 2 epines informati informati 2016 [Mass/vol on in on in 10:07 AM ume] in source source Serum or data data Plasma by Screen method Cocaine <300 ng/g No No Aug 2 [Mass/vol informati informati 2016 ume] in on in on in 10:07 AM Unspecifi source source ed data data specimen Methadone <300 ng/mL No No Aug 2 informati informati 2016 [Mass/vol on in on in 10:07 AM ume] in source source Unspecifi data data ed specimen Opiates <300 ng/mL High This is Aug 06 [Mass/vol an 2016 ume] in UNCONFIRM 10:07 AM Unspecifi ED ed result. specimen This result is for medicalpu rposes and/or treatment only. Phencycli <25 ng/mL No No Oct 2 dine informati informati 2017 [Mass/vol on in on in 10:07 AM ume] in source source Unspecifi data data ed specimen 11-Hydr NEGATIV <50 ng/mL No No Aug 2 oxy E informa informa 2017 delta-9 [...] No Dec 03 cyte 100 informa informa 2014 mean tion [...] - 46 % Low No Dec 03 informa 2014 tion in 6:47 AM source data ATY [...] t Est E informa informa informa informa 2014 tion in tion in tion in tion in 6:47 AM source source source source data data data data RBC NORMAL No No No No Dec 03 Morph informa informa informa informa 2014 tion in [...] Low No Dec 02 [Moles/ 145 informa 2015 volume] tion in 6:29 AM in source [...] No No Dec 02 nitroge informa informa 2015 n tion in tion in 6:29 AM [...] No Dec 02 ITY 295 informa informa 2014 tion in tion in [...] count Hemoglo 10.9 12.0 - g/dL Low Dec 02 bin 15.0 informa 2014 [Mass/v tion in 6:21 AM olume] source in data Blood Hematoc 33 35 - 49 % Low No Dec 02 rit informa 2014 [Volume tion in 6:21 AM source Fractio data n] of Blood by Automat ed count Erythro 89.4 80.0 - fL No No Dec 02 cyte 100 informa informa 2014 mean tion in tion in 6:21 AM corpusc source source ular data data volume [Entiti c volume] by Automat ed count Erythro 29.5 26.0 - pg No No Dec 02 cyte 32.0 informa informa 2014 mean tion [...] High No Dec 02 hils/10 0.70 informa 2014 0 tion in 6:21 AM leukocy source tenzin in data Blood by Automat ed count Basophi 0.04 0.00 - K/uL No No Dec 02 ls/100 0.20 informa informa 2014 leukocy tion in tion in 6:21 AM [...] in tion in tion in 9:47 AM [place] source source source source COUNTY data data data data [facility]\\.br\\ [address]\\.br \\ [place] [address]\\. br\\\\.br \\ RADIOLO GY REPORT\\ .br\\ Name: BETSY TROY\\.br\\ Patient #: [id number] Stay Type: I/P\\.br \\ Age: 44 Room: 236\\.br \\ : 969 Sex: F\\.br\\ Orderin g Phys: BROOKS MATIAS MR#: [id number]\\. br\\ Family Phys: ANDERS MAHARAJ Pt Phone: [phone]\\. br\\ Admitti ng Phys: BROOKS MATIAS\\.br\\ Unsig [...] nically reviewe d and signed by:\\.br \\ IKN ROBERTS MD\\.br\\ RADIOLO GIST/ 17:58\\. br\\\\.br \\ Dictati on Date/Ti me: 12/01/14 10:11 Dictate d By: KIN ROBERTS MD RADIOLO GIST\\.b r\\ Transcr . Date/Ti me: 12/01/14 / 12:04 Transcr . Init.: amh\\.br \\\\.br\\ Copy for: [address] [address] ([facility] MS)\\.br \\ Copy for: BROOKS Mitchell M.D. via fax\\.br \\\\.br\\ VIT B12 FOLATE Observa Value Referen Units Interpr Notes Date tion ce etation Range _VIT No No No No Dec 04 B12& informa informa informa informa 2014 FOLATE_ tion in tion in tion in tion in 9:53 AM source source source source data data data data Vitamin No No No No Dec 04 [...] data Status= F ------- No No No No Dec 04 ------- informa informa informa informa 2014 ------- tion in tion in tion in tion in 9:53 AM ------- source source source source ------- data data data data ------- ------- ------- ------- ------- ------- --- TEST No No No No Dec 04 informa informa informa informa 2014 tion in tion in tion in tion in 9:53 AM source source source source RESULT data data data data FLAG RANGE UNITS SC ------- No No No No Dec 04 ------- informa informa informa informa 2014 ------- tion in tion in tion in tion in 9:53 AM ------- source source source source ------- data data data data ------- ------- ------- ------- ------- ------- --- Vitamin No No No No Dec 04 B12 informa informa informa informa 2014 tion in tion in tion in tion in 9:53 AM source source source source 498 data data data data 211-946 pg/mL 5.0922. rfl.COR RCTD .LCTR Folate No No No No Dec 04 (Folic informa informa informa informa 2015 Acid), tion in tion in tion in tion in 9:53 AM source source source source >19.9 data data data data >3.0 ng/mL 5.0922. rfl.COR RCTD .LCTR Serum No No [...] 04 red to informa informa informa informa 2014 represe tion in tion in tion in tion in 9:53 AM nt source source source source clinica data data data data l deficie ncy. No No No No No Dec 04 informa informa informa informa informa 2014 tion in tion in tion in tion in tion in 9:53 AM source source source source source data data data data data Test No No No No Dec 04 perform informa informa informa informa 2015 ed at: tion in tion in tion in tion in 9:53 AM [facility] source source source source [place] data data data data 6370 No No No No Dec 04 [place] informa informa informa informa [address] tion in tion in tion in tion in 9:53 AM source source source source data data data data Babita, No No No No Dec 04 [place] informa informa informa informa 2015 [id number] tion in tion in tion in tion [...] 04 5.0953. informa informa informa informa 2015 LMM.to tion in tion in tion in [...] Dec 01 AND informa informa informa informa 2015 SCREEN tion in tion in tion in tion in 7:34 AM source source source source data data data data { No No No No Dec 01 ABO informa informa informa informa 2015 tion in tion in tion in tion in 7:34 AM source source source source A data data data data (A, B, AB or O ) { No No No No Dec 01 RH informa informa informa informa 2015 tion in tion in tion in tion in 7:34 AM source source source source data data data data POSITIV E (POS OR NEG ) { No No No No Dec 01 informa informa informa informa 2015 Antibod tion in tion in tion in tion in 7:34 AM y source source source source Screen data data data data NEGATIV E (POS OR NEG ) URINALYSIS COMPLETE AUTOMATED Observa Value Referen Units Interpr Notes Date tion ce etation Range Color YELLOW NL: No No No Nov 19 of Negativ informa informa informa 2015 Urine e tion in tion in tion [...] count Hemoglo 9.1 12.0 - g/dL Low No Jun 18 bin 15.0 informa 2013 [Mass/v [...] count Erythro 32.6 32.0 - g/dL No Jun 18 cyte 36.0 informa informa [...] count Platele 213 150 - K/uL No Jun 18 ts 450 informa informa [...] count Neutrop 69.6 50.0 - % No Jun 18 hils.ba 70.0 informa informa [...] High No Jun 18 es/100 0.90 informa 2013 leukocy tion in 5:39 AM tenzin in source Blood data by Automat ed count Neutrop 9.39 2.00 - K/uL High No Jun 18 hils.ba 6.90 informa 2013 nd tion in 5:39 AM form/10 source [...] 17 nce of Negativ informa informa informa 2013 Urine e tion in tion in tion in 11:05 source source source PM data data data Glucose NEG NL: No No No Jun 17 Negativ informa informa informa 2013 [Mass/v e tion in tion in tion [...] Jun 17 Negativ informa informa informa 2014 [Presen e [...] Jun 17 MICROSC informa informa informa informa 2014 OPIC [...] data data data Urine sedimen t by [facility] opy high power field Bacteri NEGATIV NL: [...] 17 SETUP ORDER informa informa l informa 2013 tion in tion in tion in 11:05 source source source PM data data data KNEE RIGHT 4 OR MORE VIEWS Observa Value Referen Units Interpr Notes Date tion ce etation Range KNEE No No No No Jun 17 RIGHT 4 informa informa informa informa 2013 OR tion in tion in tion in tion in 2:40 PM MORE source source source source VIEWS data data data data [facility] L\\.br\\ [address]\\.br \\ [facility] [address]\\. br\\\\.br \\ RADIOLO GY REPORT\\ .br\\ Name: BETSY TROY\\.br\\ Patient #: [id number] Stay Type: I/P\\.br \\ Age: 44 Room: 236\\.br \\ : 969 Sex: F\\.br\\ Orderin g Phys: ERIBERTO R S MR#: [id number]\\. br\\ Family Phys: BROOKS MATIAS Pt Phone: 85\\. br\\ Admitti ng Phys: BROOKS MATIAS\\.br\\ Unsig [...] e is intact and appropr iately positio treivn. There is no acute fractur e or [...] Plasma Potassi 3.8 3.5 - mmol/L No No Jun 17 um 5.1 informa informa 2013 [Moles/ tion in tion in 6:19 AM volume] source source in data data Serum or Plasma Chlorid 101 98 - mmol/L No No Jun 17 e 107 informa informa 2013 [Moles/ tion in tion in 6:19 AM volume] source source in data data Serum or Plasma TOTAL 25 21 - 32 mmol/L No No Jun 17 CO2 informa informa 2013 tion in tion in 6:19 AM source source data data ANION 11 5 - 15 mmol/L No No Jun 17 GAP informa informa 2013 tion in tion in 6:19 AM source source data data Glucose 194 70 - mg/dl High No Jun 17 120 informa 2013 [Mass/v tion in 6:19 AM olume] source in data Serum or Plasma Urea 11 7 - 18 mg/dl No No Jun 17 nitroge informa informa 2013 [...] No No Jun 17 informa informa informa 2013 tion in tion in tion in 6:19 AM source source source data data data Calcium 8.2 8.5 - mg/dl Low No Jun 17 10.1 informa 2013 [Mass/v tion in 6:19 AM olume] source in data Serum or Plasma BUN/CRE 16 6 - 25 ratio No No Jun 17 RATIO informa informa 2013 tion in tion in 6:19 AM source source data data OSMOLAL 271 272 - No Low No Jun 17 ITY 295 informa informa 2013 tion in tion in 6:19 AM source source data data \\BLDo\\G No No No No Jun 17 LOMERUL informa informa informa informa 2013 AR tion in tion in tion in [...] K/uL High No Jun 17 tenzin 11.5 informa 2013 [#/volu tion in 6:18 AM me] in source Blood data by Automat ed count Erythro 3.20 4.00 - M/uL Low No Jun 17 cytes 5.40 informa 2013 [#/volu tion in 6:18 AM me] [...] High No Jun 17 hils.ba 6.90 informa 2013 nd tion in 6:18 AM [...]
--- OUTSIDE RECORDS SUMMARY | 2017-08-31 18:25 | External Medical Summary Rpt ---
Author Author RAE Ontiveros, [employer] Organization [employer] Address Unknown Phone Unavailable [...] honePer formed at: [facility] [address] [id number] [place], [place] [id number]Lab Directo r: Miguel Ángel Fontenot MD, Phone: [phone] Codeine Negativ Cutoff= No No No Oct [...] [address]\\.br \\ [place] [address]\\. br\\\\.br \\ RADIOLO GY REPORT\\ .br\\ Name: BETSY TROY\\.br\\ Patient #: [id number] Stay Type: I/P\\.br \\ Age: 44 Room: 236\\.br \\ : 969 Sex: F\\.br\\ Orderin g Phys: BROOKS MATIAS MR#: [id number]\\. br\\ Family Phys: ANDERS MAHARAJ Pt Phone: [...] \\\\.br\\ Copy for: [address] [facility] ([facility] MS)\\.br \\ Copy for: BROOKS Mitchell [...] 9:53 AM [facility] source source source source [place] data data data data 6370 No No No No Dec 04 [place] informa informa informa informa 2015 [address] tion in tion in tion in tion in 9:53 AM source source source source data data data data Babita, No No No No Dec 04 [place] informa informa informa informa 2015 [id number] tion in tion in tion in tion [...] data data data Urine sedimen t by [facility] opy high power field Bacteri NEGATIV [...] source source VIEWS data data data data [facility] L\\.br\\ [address]\\.br \\ [place] [address]\\. br\\\\.br \\ RADIOLO GY REPORT\\ .br\\ Name: BETSY TROY\\.br\\ Patient #: [id number] Stay Type: I/P\\.br \\ Age: 44 Room: 236\\.br \\ : 969 Sex: F\\.br\\ Orderin g Phys: ERIBERTO R S MR#: [id number]\\. br\\ Family Phys: BROOKS MATIAS Pt Phone: [...]
== END 2017-08-31 14:27 | disposition home or self-care (01) ==
LOC: UTC 13:41
DX: K02.9 Dental caries, unspecified (principal); I10 Essential (primary) hypertension; J45.909 Unspecified asthma, uncomplicated; K08.89 Other specified disorders of teeth and supporting structures